=== PATIENT | male | born 1995 | race Caucasian/White ===

== ENCOUNTER 2025-04-05 12:26 | Emergency (ER) | payer BC, MEDICAID ==
[~2025-04-05] VITALS: Ht 185.4 cm; Wt 145.1 kg
[2025-04-05 12:34] VITALS: O2SAT 99
[2025-04-05 13:45] VITALS: BP 140/99; PULSE 108; RESP 18; TEMP 36.8; O2SAT 99
[2025-04-05] MEDS ORDERED: LIDO-53 TP (13:47)
== END 2025-04-05 14:04 | disposition home or self-care (01) ==
LOC: ER 12:26
DX: M54.2 Cervicalgia (principal); I10 Essential (primary) hypertension
CPT/HCPCS: 99283